=== PATIENT | male | born 1985 | race Two or more races ===

== ENCOUNTER 2016-10-24 18:19 | Emergency (ER) | payer MEDICAID ==
[~2016-10-24] VITALS: Ht 188 cm; Wt 115.7 kg
[2016-10-24] MEDS ORDERED: NKM (18:37)
--- NOTE | 2016-10-24 19:03 | Emergency Room Report ---
History of Present Illness General Chief Complaint: Abdominal Pain Source: Patient Present Illness HPI patient is a 31-year-old male presenting with diffuse upper abdominal pain with vomiting and constipation for the last 24 hours. Patient states symptoms are worse when he tries to eat or drink. He is unable to even hold down water. patient denies any prior episodes of similar, he denies any prior abdominal surgeries. He did have a colonoscopy several years ago for followup after a perirectal abscess. Allergies: Coded Allergies: No Known Allergies (Unverified , 10/24/16) Patient History Past Medical History: see triage record Past Surgical History: none Pertinent Family History: none Social History: Denies: alcohol use, drug use, smoking Nursing Documentation-[facility] Hx Gastrointestinal Problems: Yes - Rectal abscess 2006 Review of Systems Constitutional: Denies: chills, fever Respiratory: Denies: cough, shortness of breath Cardiovascular: Denies: chest pain, palpitations Gastrointestinal: Reports: abdominal pain, see HPI Genitourinary: Denies: discharge, dysuria, frequency Musculoskeletal: Denies: back pain, joint pain Skin: Denies: change in color, rash Neurological: Denies: headache, numbness Hematologic/Lymphatic: Denies: anemia, easy bleeding, easy bruising Allergic: Denies: hay fever, urticaria Physical Exam Vital Signs Date Time Temp Pulse Resp B/P Pulse Ox O2 Delivery O2 Flow Rate FiO2 10/24/16 18:33 97.9 72 16 159/192 97 Room Air Sp02 EP Interpretation: reviewed, normal General Appearance: no apparent distress, alert, GCS 15, non-toxic Head: normocephalic, atraumatic ENT: hearing grossly normal, normal pharynx, no angioedema, normal voice Neck: full range of motion, supple/symm/no masses Respiratory: chest non-tender, lungs clear, normal breath sounds, speaking full sentences Cardiovascular #1: regular rate, rhythm, no edema Gastrointestinal: normal inspection, soft, tenderness - upper abdominal tenderness to palpation without guarding or rebound, decreased bowel sounds Musculoskeletal: back normal, gait/station normal, normal range of motion, non- tender, calf tenderness Neurologic: alert, oriented x3, responsive, motor strength/tone normal, sensory intact, speech normal Skin: normal color, no rash, warm/dry, well hydrated Medical Decision Making Diagnostic Impression: Primary Impression: Gastroenteritis ER Course patient is a 31-year-old male who presents with abdominal pain and vomiting. The patient's workup including CT scan to rule out Valtrex and are negative. Other studies show a mild leukocytosis with mild left shift however this is nonspecific. Altace lipase are normal. Patient received Zofran and was able to tolerate by mouth for short period time but still feels nauseous. I will prescribe Phenergan for at home use but the patient at this point is stable to go home and followup with his primary care physician. Laboratory Tests Test 10/24/16 18:55 White Blood Count 10.9 K/UL (4.8-10.8) H Red Blood Count 5.13 M/UL (4.70-6.10) Hemoglobin 15.9 G/DL (14.2-18.0) Hematocrit 45.1 % (42.0-52.0) Mean Corpuscular Volume 88 FL (80-99) Mean Corpuscular Hemoglobin 31.0 PG (27.0-31.0) Mean Corpuscular Hemoglobin Concent 35.2 G/DL (32.0-36.0) Red Cell Distribution Width 11.8 % (11.6-14.8) Platelet Count 228 K/UL (150-450) Mean Platelet Volume 10.7 FL (6.5-10.1) H Neutrophils (%) (Auto) 76.0 % (45.0-75.0) H Lymphocytes (%) (Auto) 16.4 % (20.0-45.0) L Monocytes (%) (Auto) 6.5 % (1.0-10.0) Eosinophils (%) (Auto) 0.2 % (0.0-3.0) Basophils (%) (Auto) 0.9 % (0.0-2.0) Sodium Level 137 mEQ/L (135-145) Potassium Level 3.6 mEQ/L (3.4-4.9) Chloride Level 98 mEQ/L (98-107) Carbon Dioxide Level 22 mEQ/L (20-30) Anion Gap 17 (5-15) H Blood Urea Nitrogen 11 mg/dL (7-23) Creatinine 1.2 mg/dL (0.7-1.2) Estimate Glomerular Filtration Rate > 60 mL/min (>60) Glucose Level 123 mg/dL (74-106) H Calcium Level 10.1 mg/dL (8.6-10.2) Total Bilirubin 0.8 mg/dL (0.0-1.2) Aspartate Amino Transferase (AST) 20 U/L (5-40) Alanine Aminotransferase (ALT) 22 U/L (3-41) Alkaline Phosphatase 89 U/L (40-129) Total Protein 8.1 g/dL (6.6-8.7) Albumin 4.9 g/dL (3.5-5.2) Globulin 3.2 g/dL Albumin/Globulin Ratio 1.5 (1.0-2.7) Lipase 29 U/L (< 60) CT/MRI/US Diagnostic Results CT/MRI/US Diagnostic Results : Impression per radiology negative Last Vital Signs Date Time Temp Pulse Resp B/P Pulse Ox O2 Delivery O2 Flow Rate FiO2 10/24/16 18:33 97.9 72 16 159/192 97 Room Air Disposition: HOME, SELF-CARE Condition: Stable Scripts Promethazine Hcl* (PHENERGAN*) 25 Mg Tablet 25 MG ORAL Q6H Y for Nausea & Vomiting, #15 TAB 0 Refills Prov: BRIAN CAMPOS 10/24/16 Patient Instructions: Viral Gastroenteritis, Adult BRIAN CAMPOS Oct 24, 2016 19:03
[2016-10-24 19:11] LABS: BASOPHILS % (AUTO) 0.9 % (0.0-2.0); EOSINOPHILS % (AUTO) 0.2 % (0.0-3.0); LYMPHOCYTES % (AUTO) 16.4 % (20.0-45.0); MEAN CORPUSCULAR HGB CONC 35.2 G/DL (32.0-36.0); MEAN CORPUSCULAR VOLUME 88 FL (80-99); MEAN PLATELET VOLUME 10.7 FL (6.5-10.1); MONOCYTES % (AUTO) 6.5 % (1.0-10.0); PLATELET COUNT 228 K/UL (150-450); RED BLOOD COUNT 5.13 M/UL (4.70-6.10); RED CELL DISTRIBUTION WIDTH 11.8 % (11.6-14.8); WHITE BLOOD COUNT 10.9 K/UL (4.8-10.8)
[2016-10-24 19:31] LABS: ALBUMIN/GLOBULIN RATIO 1.5 (1.0-2.7); ANION GAP 17 (5-15); ASPARTATE AMINO TRANSFERASE 20 U/L (5-40); CALCIUM 10.1 mg/dL (8.6-10.2); CARBON DIOXIDE 22 mEQ/L (20-30); CHLORIDE 98 mEQ/L (98-107); CREATININE 1.2 mg/dL (0.7-1.2); GLOMERULAR FILTRATION RATE > 60 mL/min (>60); HEMOLYSIS 4; LIPASE 29 U/L (< 60); POTASSIUM 3.6 mEQ/L (3.4-4.9); SODIUM 137 mEQ/L (135-145); TOTAL PROTEIN 8.1 g/dL (6.6-8.7)
[2016-10-24 19:42] LABS: ALANINE AMINOTRANSFERASE 22 U/L (3-41)
[2016-10-24] MEDS ORDERED: PHENERGAN25 M1 ORAL (20:36)
[2016-10-24 20:45] VITALS: BP 138/96
[2016-10-24 20:55] VITALS: BP 138/96
--- NOTE | 2016-10-25 10:30 | Diagnostic Imaging Report ---
Indication: Abdominal pain Technique: Spiral acquisitions obtained through the abdomen and pelvis. No oral contrast utilized, per emergency room physician request No IV contrast utilized, per referring physician request.. Multiplanar reconstructions were generated. Total dose length product 1040 mGycm. CTDIvol(s) 18 mGy. Dose reduction achieved using automated exposure control Comparison: None Findings: The appendix is normal. Is no evidence of diverticulosis or diverticulitis. No small bowel distention. No free or loculated intraperitoneal air or fluid. Lack of IV contrast limits assessment of solid organs. The liver, gallbladder, pancreas, spleen, adrenals, kidneys are unremarkable. No retroperitoneal or mesenteric mass or adenopathy. No pelvic mass or adenopathy. The included lung bases are clear. The bones are unremarkable. Impression: Negative This agrees with the preliminary interpretation provided overnight by Dr. Baldwin The CT scanner at [facility] is accredited by the [employer] and the scans are performed using protocols designed to limit radiation exposure to as low as reasonably achievable to attain images of sufficient resolution adequate for diagnostic evaluation.
== END 2016-10-24 20:55 | disposition home or self-care (01) ==
LOC: EDBD 18:19 → EMR 19:11
DX: K52.9 Noninfective gastroenteritis and colitis, unspecified (principal); K59.00 Constipation, unspecified
CPT/HCPCS: 36415; 74176; 80053; 83690; 85025; 96374; 99284; J2405